=== PATIENT | female | born 1995 | race American Indian/Alaskan Native ===

== ENCOUNTER 2018-06-25 11:26 | Outpatient (CLI) | payer OTHER, MEDICAID ==
[2018-06-25 11:54] VITALS: BP 117/66
[2018-06-25 13:59] LABS: Bilirubin,Urine NEG (Negative); Blood,Urine NEG (Negative); Color,Urine Yellow (Yellow); Protein,Urine <15 mg/dL mg/dL (Negative); RBC,Urine < 1.0 /HPF (0.0-6.0); Urobilinogen,Urine < 2.0 mg/dL (<2.0)
--- NOTE | 2018-06-25 14:39 | Progress Note ---
Assessment and Plan A: at 37 weeks, 4 days gestation. False labor. P: Patient is not in active labor. Fetus is moving well and NST is reactive. Patient was discharged home with instructions re: signs of labor, warning signs of late , and daily movement counting. Advised pt. to return promptly if signs of labor, LOF, VB, or any decreases in movement. Advised pt. to keep her scheduled appointment at [facility] on this coming Wednesday. Pt. voiced understanding of instructions. Subjective - Subjective Date of service: 06/25/18 Principal diagnosis: at 37 weeks, 4 days; false labor Interval history: 23 year old at 37 weeks, 4 days gestation (EDC 07/12/18) presented to triage complaining of irregular contractions. Patient reports irregular mild contractions occurring intermittently for several days. Patient denies leaking of fluid or vaginal bleeding. Patient reports active movement. She reports she is performing a movement count daily. She denies abdominal pain. Patient reports: movement normal, contractions, no loss of fluid, no vaginal bleeding Objective - Vital Signs Vital Signs: Vital Signs - 12hr 06/25/18 11:34 Pulse Rate 91 H Blood Pressure 117/66 - Exam Abdomen: Present: normal appearance, soft. Absent: distention, tenderness, guarding, rigidity FHR: category 1 FHR comments: Reactive NST. Uterine Contraction Monitor Mode: External Cervical Dilatation: 1 Cervical Effacement Percentage: 20 station: -3 Uterine Contraction Pattern: Irregular Uterine Contraction Intensity: Mild - Labs Labs: Laboratory Results - last 24 hr 06/25/18 12:15 Urine Color Yellow Urine Turbidity Cloudy Urine pH 6.0 Ur Specific [place] 1.005 Urine Protein <15 mg/dl Urine Glucose (UA) Neg Urine Ketones 20 Urine Blood Neg Urine Nitrite Neg Urine Bilirubin Neg Urine Urobilinogen < 2.0 Ur Leukocyte Esterase Mod Urine WBC (Auto) 5.0 Urine RBC (Auto) < 1.0 U Epithel Cells (Auto) 3.0
[2018-06-25] MEDS ORDERED: LACTATED RINGERS 1,000 ML ONE (16:02)
== END 2018-06-25 14:33 | disposition home or self-care (01) ==
LOC: TRG 11:26
PROVIDERS: ATTEND Obstetrics & Gynecology
DX: O47.03 False labor before 37 completed weeks of gestation, third trimester (principal); Z3A.37 37 weeks gestation of pregnancy
CPT/HCPCS: 59025; 81001; J7120

== ENCOUNTER 2021-02-21 03:17 | Outpatient (CLI) | payer OTHER ==
[2021-02-21 03:59] VITALS: BP 106/62
[2021-02-21] MEDS ORDERED: LACTATED RINGERS 1,000 ML IV SCH (04:45)
[2021-02-21 05:05] LABS: Bacteria,Urine 1+ /HPF (Negative); Bilirubin,Urine NEG (Negative); Blood,Urine NEG (Negative); Color,Urine Yellow (Yellow); Mucus,Urine FEW /HPF; Protein,Urine <15 mg/dL mg/dL (Negative); Urobilinogen,Urine < 2.0 mg/dL (<2.0)
--- NOTE | 2021-02-21 05:39 | Ultrasound Report ---
Limited obstetrical ultrasound INDICATION: Term , contractions, amniotic fluid volume and placental assessment COMPARISON: None FINDINGS: Term intrauterine is seen in a cephalic position. Cardiac activity was documented at 131 bpm. Placenta is posterior and free of the internal cervical os without significant abnormali ty seen. Small venous lakes are noted. Amniotic fluid volume appears appropriate and STACY is within no rmal limits at 16.3 cm. BIOPHYSICAL PROFILE breathing movements: 2/2 movements: 2/2 posture and tone tone: 2/2 Qualitative amniotic fluid volume: 2/2 Total score: 8/8, within normal limits Signer Name: Murphy Richmond MD Signed: 02/21/2021 5:35 AM Workstation Name: [id number]
[2021-02-21] MEDS ORDERED: GENTAMICIN/NS 80 MG/100 ML 100 ML IV SCH (08:00)
== END 2021-02-21 09:48 | disposition home or self-care (01) ==
LOC: TRG 03:17 → APU 03:18 → TRG 09:48
DX: O62.9 Abnormality of forces of labor, unspecified (principal); O99.513 Diseases of the respiratory system complicating pregnancy, third trimester; J45.909 Unspecified asthma, uncomplicated; Z3A.37 37 weeks gestation of pregnancy
CPT/HCPCS: 59025; 76815; 76819; 81001; 87086; 96361; 96365; 96366; J1580; J7120; 96360

== ENCOUNTER 2021-02-23 15:27 | Inpatient (IN) | payer OTHER ==
[2021-02-23] MEDS ORDERED: ePHEDrine SULFATE 50 MG/1 ML INJ IV PRN ×2 (18:37→22:29)
[2021-02-23] MEDS ORDERED: MINERAL OIL 30 ML ORAL LIQD PO PRN (18:37)
[2021-02-23] MEDS ORDERED: TERBUTALINE 1 MG/1 ML INJ SUB-Q PRN (18:37)
[2021-02-23] MEDS ORDERED: LACTATED RINGERS 1,000 ML IV ONE (18:38)
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
[2021-02-23] MEDS ORDERED: OXYTOCIN DRIP 30 UNITS/500 ML BAG IV SCH ×2 (19:00)
[2021-02-23] MEDS ORDERED: LIDOCAINE (2%) 20 MG/1 ML VIAL 20 ML MDV INFILTRATI ONE (19:37)
[2021-02-23] MEDS ORDERED: LACTATED RINGERS 1,000 ML IV SCH (19:45)
[2021-02-23] MEDS ORDERED: VANCOMYCIN/NS 1 GM/250 ML 1 GM/250 ML BAG IV SCH (20:00)
[2021-02-23 20:29] LABS: Bacteria,Urine 1+ /HPF (Negative); Bilirubin,Urine NEG (Negative); Blood,Urine LG (Negative); Color,Urine Straw (Yellow); Mucus,Urine FEW /HPF; Protein,Urine <15 mg/dL mg/dL (Negative); Urobilinogen,Urine < 2.0 mg/dL (<2.0)
[2021-02-23 20:31] LABS: Amphetamine Screen,Urine Negative; Benzodiazepines Screen,Urine Negative; Cannabinoid Screen,Urine Negative; Cocaine Screen,Urine Negative; Methadone Screen,Urine Negative; Opiate Screen,Urine Negative
[2021-02-23 21:43] LABS: Hematocrit 30.2 % (30.3-42.9); Hemoglobin 10.4 gm/dl (10.1-14.3); Mean Corpuscular HGB Conc 34 % (30-34); Mean Corpuscular Volume 102 fl (79-97); Platelet Count 170 K/mm3 (140-440); Red Blood Count 2.95 M/mm3 (3.65-5.03); Red Cell Distribution Width 13.2 % (13.2-15.2)
[2021-02-23 22:03] LABS: Alanine Aminotransferase 7 units/L (7-56); Albumin 3.2 g/dL (3.9-5); Blood Urea Nitrogen 4 mg/dL (7-17); Calcium 8.8 mg/dL (8.4-10.2); Hemolysis Index 2
[2021-02-23 22:08] LABS: BUN/Creatinine Ratio 10
[2021-02-23 22:10] LABS: Hepatitis C Virus Antibody Non-Reactive (NonReactive)
[2021-02-23] MEDS ORDERED: NALOXONE 2 MG/2 ML INJ IV PRN (22:29)
--- NOTE | 2021-02-23 22:29 | Anesthesia Consultation ---
Anesthesia Consult and Med Hx Date of service: 02/23/21 - Airway Anesthetic Teeth Evaluation: Good ROM Head & Neck: Adequate Mental/Hyoid Distance: Adequate Mallampati Class: Class II Intubation Access Assessment: Probably Good - Pulmonary Exam CTA: Yes - Cardiac Exam Cardiac Exam: RRR - Pre-Operative Health Status ASA Pre-Surgery Classification: ASA3 Proposed Anesthetic Plan: Epidural - Pulmonary Hx Asthma: Yes - Cardiovascular System Hx Hypertension: No - Central Nervous System Hx Seizures: Yes (no meds at this time) Hx Psychiatric Problems: No - Endocrine Hx Renal Disease: No Hx Hypothyroidism: No Hx Hyperthyroidism: No - Hematic Hx Anemia: Yes (with meds today) Hx Sickle Cell Disease: No - Other Systems Hx Alcohol Use: No
--- NOTE | 2021-02-23 22:58 | Progress Note ---
Labor Epidural - Labor Epidural Start Time: 22:50 Stop Time: 22:55 Performed by:: JAMISON GOMEZ Procedure: Patient is requesting epidural for labor pain. H&P, and labs reviewed. Procedure explained, questions answered, consent obtained. Patient in sitting position with blood pressure cuff and pulse ox on and working. Timeout performed immediately before start of procedure. Sterile chlorahexadine 0.5% prep/drape. 3 mL 1% lidocaine skin wheal at L[3]-L[4]. 18-gauge [employer] epidural needle advanced to [id number] with saline at [7] cm. 27-gauge spinal needle advanced until clear, free-flowing CSF. Intrathecal dexmedetomidine [5] mcg administered and needle removed. Epidural catheter advanced to [12] cm, negative aspiration for blood and csf, negative test dose 3 ml 1.5% lidocaine with epinephrine. Sterile steri-strips and tegaderm applied, followed by tape reinforcement. Patient tolerated procedure well.
[2021-02-23] MEDS ORDERED: fentaNYL-BUPIV 2 MCG/ML-0.125% 200 MCG/100 ML BAG EPIDURAL SCH (23:00)
--- NOTE | 2021-02-24 02:41 | Event Note ---
Date: 02/24/21 Pt comfortable with epidural and pitocin at 10mu/min; AROM done using FSE with pelvic 4/80/-1 and clear fluid. FHR with loss of contact until AROM done therefore FSE not placed and FHR with category I tracing and ctx 2-4min; expect
[2021-02-24] MEDS ORDERED: miSOPROStol 100 MCG TAB ONE (05:14)
[2021-02-24] MEDS ORDERED: miSOPROStol 200 MCG TAB PR ONE (05:15)
[2021-02-24] MEDS ORDERED: WITCH HAZEL/ GLYCERIN PAD TP PRN (05:54)
[2021-02-24] MEDS ORDERED: diphenhydrAMINE 25 MG CAP PO PRN (05:54)
[2021-02-24] MEDS ORDERED: LANOLIN/ZINC/DIMETHICONE (LANSINOH) 7 GM TP PRN (05:54)
[2021-02-24] MEDS ORDERED: MAGNESIUM HYDROXIDE (MOM) ORAL LIQD UDC PO PRN (05:54)
--- NOTE | 2021-02-24 06:04 | Procedure Note ---
OB Delivery Note - Delivery Date of Delivery: 02/24/21 Surgeon: JADA JOYNER Estimated blood loss: other (450 cc) - Vaginal Delivery presentation: vertex Delivery position: OA Intrapartum events: none Delivery induction: none Delivery augmentation: rupture of membranes, pitocin Delivery monitor: external FHT, external uterine Route of delivery: Delivery placenta: spontaneous Delivery cord: 3 umbilical vessels Episiotomy: none Delivery laceration: 2nd degree Delivery repair: vicryl Anesthesia: epidural Delivery comments: Spontaneous vaginal delivery at 05:00 of liveborn female infant weighing 7 lb. 2 oz. (3235 grams) over 2nd degree perineal laceration with apgars of 8/9. was atraumatic; no nuchal cord. Baby placed skin to skin with mom immediately after delivery. Spontaneous cry and respirations. Baby suctioned with bulb syringe and dried with warm towels. 3 vessel cord double clamped and cut and baby taken to radiant warmer for further suctioning. Cord blood obtained. Spontaneous delivery of intact placenta and membranes by carter mechanism at 05:11. EBL 450 cc. Pitocin to IV fluids after delivery of placenta. Cytotec 800 micrograms given rectally for uterine atony. Fundus firmed with massage. 2nd degree perineal laceration repaired with 2-0 vicryl in usual sterile fashion. No other lacerations noted. Vaginal sweep negative. Sponge count correct. Mother and baby stable.
[2021-02-24] MEDS: IBUPROFEN 600 MG TAB PO SCH ×3 (07:30→16:39)
--- NOTE | 2021-02-24 09:04 | Post Anesthesia Evaluation ---
- Post Anesthesia Evaluation Patient Participated: Yes Airway Patent: Yes Stable Respiratory Function: Yes Nausea/Vomiting: No Temp > 96.8F: Yes Pain Manageable: Yes Adequeate Hydration: Yes Anesthesia Complications: No Block Receding Appropriately: Yes
[2021-02-24] MEDS ORDERED: FERROUS SULFATE 325 MG TAB PO SCH (10:00)
--- NOTE | 2021-02-24 12:15 | Progress Note ---
Assessment and Plan . NO PROBLEMS. - Patient Problems (1) 39 weeks gestation of Onset Date: 07/01/18 Current Visit: No Status: Acute (2) Anemia in puerperium, baby delivered during current episode of care Current Visit: No Status: Acute (3) Status post normal vaginal delivery Current Visit: No Status: Acute Subjective - Subjective Date of service: 02/24/21 Principal diagnosis: TERM , LABOR, Patient reports: appetite normal, voiding normally, pain well controlled, ambulating normally [place]: doing well Objective - Vital Signs Latest vital signs: Vital Signs Temp Pulse Resp BP BP Pulse Ox 02/24/21 10:00 97.8 F 92 H 18 114/65 100 02/24/21 08:17 80 100/61 96 02/24/21 08:12 93 H 100/56 02/24/21 07:57 94 H 100/56 02/24/21 07:42 86 100/53 02/24/21 07:30 98.1 F 16 02/24/21 07:27 96 H 111/64 02/24/21 07:12 86 108/55 02/24/21 06:58 91 H 116/54 02/24/21 06:42 86 109/63 02/24/21 06:27 87 107/57 02/24/21 06:12 73 109/58 02/24/21 05:57 93 H 104/52 02/24/21 05:42 76 101/60 02/24/21 05:41 76 99 02/24/21 05:36 74 98 02/24/21 05:31 79 97 02/24/21 05:27 75 98/55 02/24/21 05:26 84 97 02/24/21 05:21 93 H 96 02/24/21 05:16 98 H 96 02/24/21 05:11 83 96 02/24/21 05:08 76 100/54 02/24/21 05:06 90 97 02/24/21 05:02 97 H 111/64 02/24/21 05:01 95 H 100 02/24/21 04:56 96 H 98 02/24/21 04:52 93 02/24/21 04:51 93 H 99 02/24/21 04:46 82 99 02/24/21 04:41 79 100 02/24/21 04:36 77 100 02/24/21 04:32 77 109/67 02/24/21 04:31 77 98 02/24/21 04:26 83 97 02/24/21 04:21 80 94 02/24/21 04:16 76 95 02/24/21 04:14 76 94 02/24/21 04:11 79 95 02/24/21 04:07 72 94 02/24/21 04:06 84 94 02/24/21 04:02 75 104/62 94 02/24/21 04:01 75 95 02/24/21 03:57 78 94 02/24/21 03:56 79 95 02/24/21 03:52 76 94 02/24/21 03:51 78 96 02/24/21 03:46 80 97 02/24/21 03:41 73 96 02/24/21 03:36 82 96 02/24/21 03:33 74 105/61 02/24/21 03:31 81 95 02/24/21 03:26 85 99 02/24/21 03:21 77 96 02/24/21 03:16 76 96 02/24/21 03:11 71 95 02/24/21 03:06 72 97 02/24/21 03:02 80 107/59 02/24/21 03:01 94 H 96 02/24/21 02:56 70 96 02/24/21 02:51 77 97 02/24/21 02:46 69 99 02/24/21 02:41 82 99 02/24/21 02:36 74 100 02/24/21 02:32 74 112/68 02/24/21 02:31 75 99 02/24/21 02:28 97.6 F 20 02/24/21 02:26 87 98 02/24/21 02:02 80 106/59 02/24/21 01:53 76 98 02/24/21 01:48 73 98 02/24/21 01:43 75 98 02/24/21 01:38 80 97 02/24/21 01:33 78 98 02/24/21 01:29 70 99/57 02/24/21 01:28 71 98 02/24/21 01:23 88 96 02/24/21 01:18 78 89/54 98 02/24/21 01:13 75 97 02/24/21 01:09 67 99/51 02/24/21 01:08 69 98 02/24/21 01:03 71 96 02/24/21 01:01 72 89/48 02/24/21 00:58 67 97 02/24/21 00:53 69 97 02/24/21 00:48 68 87/49 98 02/24/21 00:43 72 97 02/24/21 00:38 70 87/52 98 02/24/21 00:33 73 97 02/24/21 00:29 68 89/51 02/24/21 00:28 71 97 02/24/21 00:23 75 97 02/24/21 00:19 71 88/52 02/24/21 00:18 72 98 02/24/21 00:13 71 97 02/24/21 00:08 86 92/52 97 02/24/21 00:03 79 96 02/23/21 23:59 77 88/53 02/23/21 23:58 78 97 02/23/21 23:53 83 96 02/23/21 23:48 80 101/59 96 02/23/21 23:43 90 96/53 96 02/23/21 23:38 79 96 02/23/21 23:37 76 98/55 02/23/21 23:33 81 96 02/23/21 23:32 80 94/52 02/23/21 23:29 76 102/55 02/23/21 23:28 77 96 02/23/21 23:23 81 96 02/23/21 23:22 82 101/55 02/23/21 23:19 105 H 102/62 02/23/21 23:18 87 96 02/23/21 23:16 81 104/60 02/23/21 23:13 87 96/54 96 02/23/21 23:10 85 96/52 94 02/23/21 23:08 82 94 02/23/21 23:07 75 106/58 02/23/21 23:05 78 94 02/23/21 23:04 74 104/59 02/23/21 23:03 76 95 02/23/21 23:01 78 102/56 02/23/21 22:58 75 108/55 97 02/23/21 22:55 98 H 114/57 02/23/21 22:53 106 H 99 05/21 22:52 106 H 107/56 02/23/21 22:48 101 H 100 02/23/21 22:47 110 H 119/57 02/23/21 22:43 102 H 100 02/23/21 22:38 81 100 02/23/21 22:33 83 100 02/23/21 22:28 103 H 99 02/23/21 22:14 98 H 99 02/23/21 22:09 99 H 99 02/23/21 22:04 88 100 02/23/21 22:00 97.8 F 96 H 20 92 02/23/21 21:59 97 H 98 02/23/21 21:54 95 H 98 02/23/21 21:49 94 H 98 02/23/21 21:44 107 H 98 02/23/21 21:39 96 H 98 02/23/21 21:34 103 H 97 02/23/21 21:29 86 98 02/23/21 21:24 94 H 99 02/23/21 21:19 103 H 99 02/23/21 21:14 87 99 02/23/21 21:09 98 H 99 02/23/21 21:04 86 99 02/23/21 20:59 85 99 02/23/21 20:54 109 H 100 02/23/21 20:49 89 99 02/23/21 20:44 91 H 99 02/23/21 20:39 85 100 02/23/21 20:34 92 H 99 02/23/21 20:29 90 100 02/23/21 20:24 83 100 02/23/21 20:19 88 100 02/23/21 20:14 90 99 02/23/21 20:09 85 100 02/23/21 20:04 89 96 02/23/21 19:10 84 95/50 02/23/21 18:20 104 H 100 02/23/21 18:15 85 100 02/23/21 17:44 80 98 02/23/21 17:40 82 98 02/23/21 17:35 80 99 02/23/21 17:30 89 100 02/23/21 17:25 94 H 99 02/23/21 17:20 84 99 02/23/21 17:15 86 99 02/23/21 17:09 84 98 02/23/21 17:04 82 99 05/30/21 16:59 89 98 02/23/21 16:54 86 98 02/23/21 16:49 84 98 02/23/21 16:44 86 98 02/23/21 16:40 98.8 F 18 02/23/21 16:39 89 100 02/23/21 16:37 92 H 104/66 02/23/21 16:34 104 H 100 Intake and Output 02/23/21 02/24/21 02/24/21 23:59 07:59 15:59 Intake Total 13.166 Output Total 600 700 Balance -586.834 -700 Intake: IV 13.166 PITOCin/NS 30 UNIT/500ML 13.166 30 units In 500 ml @ 2 mls/hr IV TITR MORENA Rx#: [id number] Output: Urine 600 700 Indwelling Catheter 600 Void 700 Other: Total, Output Amount 600 700 # Voids Void 1 Weight 84.368 kg Estimated Blood Loss 450 - Exam Breasts: Present: normal Abdomen: Present: normal appearance, soft Extremities: Present: normal - Labs Labs: Abnormal lab results 02/23/21 02/23/21 Range/Units 21:26 21:26 RBC 2.95 L (3.65-5.03) M/mm3 Hct 30.2 L (30.3-42.9) % MCV 102 H (79-97) fl MCH 35 H (28-32) pg Sodium 135 L (137-145) mmol/L Potassium 3.4 L (3.6-5.0) mmol/L BUN 4 L (7-17) mg/dL Creatinine 0.4 L (0.6-1.2) mg/dL Total Protein 6.0 L (6.3-8.2) g/dL Albumin 3.2 L (3.9-5) g/dL
[2021-02-24] MEDS: HYDROcodone/ACETAMINOPHEN 5-325 MG TAB PO PRN (19:44)
[2021-02-25] MEDS: IBUPROFEN 600 MG TAB PO SCH ×3 (00:50→12:10)
[2021-02-25] MEDS: DOCUSATE SODIUM 100 MG CAP PO SCH ×2 (00:51→10:42)
--- NOTE | 2021-02-25 09:23 | Progress Note ---
Assessment and Plan A: S/P Asymptomatic anemia P: D/C home today per pt request Subjective - Subjective Date of service: 02/25/21 Principal diagnosis: TERM , LABOR, Patient reports: appetite normal, voiding normally, pain well controlled, ambulating normally : doing well, bottle feeding Objective - Vital Signs Latest vital signs: Vital Signs Temp Pulse Resp BP BP Pulse Ox 02/25/21 08:27 97.8 F 76 18 101/60 100 02/25/21 02:30 97.7 F 77 18 98/55 98 02/24/21 16:43 98.3 F 78 18 105/69 100 02/24/21 10:00 97.8 F 92 H 18 114/65 100 02/24/21 09:55 16 Intake and Output 02/24/21 02/25/21 02/25/21 22:59 06:59 14:59 Intake Total 240 480 Output Total 500 Balance -260 480 Intake: Oral 240 240 Intake, Free Water 240 Output: Urine 500 Void 500 Other: Total, Intake Amount 240 240 Total, Output Amount 500 # Voids Void 1 - Exam Breasts: Present: normal Abdomen: Present: normal appearance, soft, normal bowel sounds Vulva: both: normal Uterus: Present: normal, firm, fundal height below umbilicus Extremities: Present: normal Incision: Present: normal, intact - Labs Labs: Abnormal lab results 02/24/21 Range/Units 18:00 Hgb 9.0 L (10.1-14.3) gm/dl Hct 27.0 L (30.3-42.9) %
--- NOTE | 2021-02-25 09:26 | Discharge Summary ---
Providers - Providers Date of Admission: 02/23/21 18:37 Date of discharge: 02/25/21 Attending physician: MARIO LOFTON Primary care physician: MARIO LOFTON Hospitalization Reason for admission: active labor, IUP at term Delivery: Episiotomy: none Laceration: 2nd degree Incision: normal, intact Other procedures: none complications: none Discharge diagnosis: IUP at term delivered [place] baby: female Hospital course: Pt was admitted to [facility] in active labor. She had a w/o pp complications. See H&P, delivery summary, and pp notes. Condition at discharge: Stable Disposition: DC- TO HOME OR SELFCARE Plan - Provider Discharge Summary Activity: routine, no sex for 6 weeks, no heavy lifting 4 weeks, no strenuous exercise Diet: routine Instructions: routine Additional instructions: [] Smoking cessation referral if applicable(refer to patient education folder for contact #) [] Refer to [facility] Booklet Call your doctor immediately for: * Fever > 100.5 * Heavy vaginal bleeding ( >1 pad per hour) * Severe persistent headache * Shortness of breath * Reddened, hot, painful area to leg or breast * Drainage or odor from incision. * Keep incision clean and dry at all times and follow doctor's instructions regarding bathing/showering - Follow up plan Follow up: MARIO LOFTON MD [Primary Care Provider] - 6 Weeks
[2021-02-25] MEDS: HYDROcodone/ACETAMINOPHEN 5-325 MG TAB PO PRN (10:45)
[2021-02-25 15:11] VITALS: BP 97/62
== END 2021-02-25 14:15 | disposition home or self-care (01) | DRG 806 ==
LOC: TRG 15:27 → APU 15:28 → LD 18:29 → TRG 18:37 → LD 18:37 → OB 02-24 09:59
PROVIDERS: ADMIT Obstetrics & Gynecology; ATTEND Obstetrics & Gynecology
PROC: 3E0234Z Introduction of Serum, Toxoid and Vaccine into Muscle, Percutaneous Approach (ICD-10-PCS; 2021-02-23)
PROC: 00HU33Z Insertion of Infusion Device into Spinal Canal, Percutaneous Approach (ICD-10-PCS; 2021-02-23)
PROC: 10E0XZZ Delivery of Products of Conception, External Approach (ICD-10-PCS; principal; 2021-02-24)
PROC: 0KQM0ZZ Repair Perineum Muscle, Open Approach (ICD-10-PCS; 2021-02-24)
PROC: 10907ZC Drainage of Amniotic Fluid, Therapeutic from Products of Conception, Via Natural or Artificial Opening (ICD-10-PCS; 2021-02-24)
DX: O99.02 Anemia complicating childbirth (principal); D62 Acute posthemorrhagic anemia; Z37.0 Single live birth; O99.52 Diseases of the respiratory system complicating childbirth; O70.1 Second degree perineal laceration during delivery; Z20.822 Contact with and (suspected) exposure to COVID-19; Z3A.37 37 weeks gestation of pregnancy; Z80.9 Family history of malignant neoplasm, unspecified; Z91.040 Latex allergy status; Z91.09 Other allergy status, other than to drugs and biological substances
CPT/HCPCS: 36415; 59025; 76815; 76819; 80053; 80307; 81001; 85014; 85018; 85027; 86592; 86706; 86762; 86803; 86850; 86900; 86901; 87086; 87806; 96360; 96361; 96365; 96366; G0378; J1580; J2590; J3370; J7120; U0003